=== PATIENT | male | born 1970 | race Caucasian/White ===

== ENCOUNTER 2019-01-25 02:29 | Emergency (ER) | payer BC ==
[~2019-01-25] VITALS: Ht 167.6 cm; Wt 90.7 kg
[2019-01-25] MEDS ORDERED: BENZONATATE 100 MG CAPSULE. PO ONE (03:00)
[2019-01-25] MEDS ORDERED: ACETAMINOPHEN 500 MG TABLET PO ONE (03:00)
--- NOTE | 2019-01-25 03:01 | PHYS DOC ---
Past History Past Medical History: Hypothyroid Past Surgical History: No Surgical History Smoking: Non-smoker Alcohol Use: None Drug Use: None Adult General Chief Complaint Chief Complaint: COUGH HPI HPI Patient is a 48-year-old male who presents to the emergency department for evaluation. He states that he has had nasal congestion and felt "stopped up" for the past several days, and he took some NyQuil and Benadryl before going to bed. He states he awakened at the middle of night with paroxysmal coughing, which led to some posttussive emesis. He also reports a generalized headache and low back pain from the coughing, he states he has had "allergy" headaches in the past, not quite like this current headache. The headache is not "the worst headache of his life". He denies any vision changes, or any other pain. Has not had any nausea, or vomiting. Patient states that laying flat exacerbates his symptoms as his nasal congestion runs down the back of his throat. There are no alleviating or exacerbating factors to his symptoms otherwise. Review of Systems Review of Systems Constitutional: Denies fever or chills [] Eyes: Denies change in visual acuity, redness, or eye pain [] HENT: Denies otalgia or sore throat. Reports nasal congestion. [] Respiratory: Denies productive cough or shortness of breath [] Cardiovascular: The patient denies any shortness of breath, chest pain, palpitations, or orthopnea [] GI: Denies abdominal pain, nausea, bloody stools or diarrhea. Reports posttussive emesis. [] : Denies dysuria or hematuria [] Musculoskeletal: Denies joint pain. Reports back pain from coughing. [] Integument: Denies rash or skin lesions [] Neurologic: Denies focal weakness or sensory changes [] Current Medications Current Medications Current Medications Medications (Trade) Dose Ordered Sig/Doretha Start Time Stop Time Status Last Admin Dose Admin Acetaminophen (Tylenol) 1,000 mg 1X ONCE 01/25/19 03:00 01/25/19 03:01 UNV Benzonatate (Tessalon Perle) 200 mg 1X ONCE 01/25/19 03:00 01/25/19 03:01 UNV Allergies Allergies Allergies Coded Allergies Type Severity Reaction Last Updated Verified Penicillins Allergy Unknown 01/25/19 Yes Physical Exam Physical Exam PHYSICAL EXAM: CONSTITUTIONAL: Well developed, well nourished HEAD: normocephalic, atraumatic EENT: PERRL, EOMI. Conjunctivae normal color, sclerae non-icteric; moist mucous membranes. NECK: Supple, non-tender; no meningismus. LUNGS: Mild scattered expiratory wheezes with paroxysmal coughing, breathing even and unlabored. Normal air movement. HEART: Regular rate and rhythm, no murmur CHEST: No deformity; non-tender ABDOMEN: The abdomen is soft, and non-tender, no masses or bruits. EXTREM: Normal ROM; no deformity, no calf tenderness. Normal pulses palpable in all extremities. There is no pedal edema. SKIN: No rash; no diaphoresis NEURO: Alert; normal speech and cognition; CN's grossly intact; strength grossly intact without focal deficit. BACK: No CVA TTP. Current Patient Data Vital Signs Vital Signs Date Time Temp Pulse Resp B/P (MAP) Pulse Ox O2 Delivery O2 Flow Rate FiO2 01/25/19 02:41 97.5 92 18 97 Room Air Lab Results Laboratory Tests Test 01/25/19 02:47 Influenza Type A (Rapid) Negative Influenza Type B (Rapid) Negative Current Medications Medications (Trade) Dose Ordered Sig/Doretha Route PRN Reason Start Time Stop Time Status Last Admin Dose Admin Benzonatate (Tessalon Perle) 200 mg 1X ONCE PO 01/25/19 03:00 01/25/19 03:02 DC 01/25/19 03:00 Acetaminophen (Tylenol) 1,000 mg 1X ONCE PO 01/25/19 03:00 01/25/19 03:02 DC 01/25/19 03:00 EKG EKG [] Radiology/Procedures Radiology/Procedures PROCEDURE: CHEST PA & LATERAL Chest, PA and Lateral: Technique: PA and lateral views of the chest were obtained. History: Cough, pelletthe chest. Comparison: None. Findings/ impression: Mild cardiomegaly.. Prominent bilateral interstitial lung markings could be mild interstitial infiltrates or chronic interstitial changes.. Small metallic pellet projects in the left chest wall.. The pleural margins are clear.[] Course & Med Decision Making Course & Med Decision Making Pertinent Labs and Imaging studies reviewed. (See chart for details) []Patient remains stable. I discussed test results, the need for close follow- up, and return precautions. Patient will be given a course of antibiotics as well as an antitussive, based on the x-ray findings Galdino Disclaimer Galdino Disclaimer This electronic medical record was generated, in whole or in part, using a voice recognition dictation system. Departure Departure: Impression: Primary Impression: Cough Disposition: 01 HOME, SELF-CARE Condition: STABLE Patient Instructions: Cough, Adult, Upper Respiratory Infection, Adult Scripts Benzonatate (TESSALON PERLE) 100 Mg Capsule 100 MG PO TID PRN for COUGH, #20 CAP Prov: ALPHONSE ABDI MD 01/25/19 Azithromycin (ZITHROMAX) 250 Mg Tablet 1 PKG PO UD for -, #6 TAB Prov: ALPHONSE ABDI MD 01/25/19 ALPHONSE ABDI MD Jan 25, 2019 03:01
--- NOTE | 2019-01-25 03:29 | RAD ---
Chest, PA and Lateral: Technique: PA and lateral views of the chest were obtained. History: Cough, pelletthe chest. Comparison: None. Findings/ impression: Mild cardiomegaly.. Prominent bilateral interstitial lung markings could be mild interstitial infiltrates or chronic interstitial changes.. Small metallic pellet projects in the left chest wall.. The pleural margins are clear. Electronically signed by: Ty Damon MD (01/25/2019 3:26 AM) [id number]
[2019-01-25 03:36] LABS: INFLUENZA A PATIENT NEGATIVE (NEGATIVE); INFLUENZA B PATIENT NEGATIVE (NEGATIVE)
[2019-01-25] MEDS ORDERED: AZIT250T PO (03:42)
[2019-01-25] MEDS ORDERED: BENZ100C PO (03:42)
[2019-01-25 03:45] VITALS: BP 117/64
== END 2019-01-25 03:46 | disposition home or self-care (01) ==
LOC: EDBD 02:29 → ER 02:29
DX: R05 Cough (principal); R09.81 Nasal congestion; R51 Headache; M54.5 Low back pain; R11.10 Vomiting, unspecified; E03.9 Hypothyroidism, unspecified; Z88.0 Allergy status to penicillin
CPT/HCPCS: 71046; 87804; 99285